=== PATIENT | female | born 1970 | race African-American/Black ===

== ENCOUNTER 2025-01-28 22:46 | Emergency (ER) | payer BC, OTHER ==
[~2025-01-28] VITALS: Ht 170.2 cm; Wt 124.7 kg
[2025-01-29 00:29] LABS: BASOPHILS % 0.3 % (0.0-1.0); EOSINOPHILS % 0.1 % (0.0-6.0); LYMPHOCYTES % 14.1 % (18.0-39.1); MONOCYTES % 4.5 % (4.4-11.3); NEUTROPHILS % 80.4 % (38.7-80.0); RED CELL DISTRIBUTION WIDTH 15.7 % (11.7-14.4)
[2025-01-29 00:41] VITALS: PULSE 87; RESP 18; TEMP 98.2
[2025-01-29 01:09] LABS: CORONAVIRUS COVID-19 AG NEGATIVE (NEGATIVE)
[2025-01-29 01:43] LABS: EST GLOMERULAR FILTRATION RATE 74 ML/MIN (>=60)
[2025-01-29 03:17] VITALS: BP 142/92; PULSE 79; RESP 17; TEMP 97.7; O2SAT 100
== END 2025-01-29 03:20 | disposition home or self-care (01) ==
LOC: ER 22:59
DX: E11.65 Type 2 diabetes mellitus with hyperglycemia (principal); R53.1 Weakness
CPT/HCPCS: 36415; 71045; 80053; 82550; 82948; 83690; 83880; 84484; 85025; 93005; 99284